=== PATIENT | female | born 1980 | race Caucasian/White ===

== ENCOUNTER 2016-08-04 13:58 | Emergency (ER) ==
[2016-08-04 14:22] VITALS: BP 133/76
--- NOTE | 2016-08-04 15:52 | PROVIDER DOCUMENTATION ---
[facility]-EENT General - General Chief Complaint: Sore Throat Stated Complaint: SORE THROAT Time Seen by Provider: 08/04/16 15:28 Source: patient Allergies/Adverse Reactions: Patient Allergies Allergy/AdvReac Type Severity Reaction Status Date / Time No Known Allergies Allergy Verified 08/04/16 14:22 Home Medications: Home Medication List Medication Instructions Recorded Confirmed Last Taken Type Citalopram [Celexa] 40 mg PO DAILY 01/05/15 08/04/16 01/05/15 History Clonazepam [Klonopin] 0.5 mg PO PRN PRN 01/05/15 08/04/16 Unknown History Amoxicillin 875 mg PO BID #14 tablet 08/04/16 Unknown Rx Guaifenesin/Codeine Phosphate 10 ml PO Q4HR PRN #120 liquid 08/04/16 Unknown Rx [Cheratussin AC Syrup] Tizanidine HCl [Zanaflex] 4 mg PO DAILY 08/04/16 08/04/16 Unknown History - History of Present Illness-EENT General Nature of Presenting Problem: Pt is 35 y/o F presents to the ED with sore throat. Pt states symptoms started last night. Pt states mild cough. Pt denies F. EENT Location: reports: throat Quality of Pain: reports: aching Severity: reports: mild Onset/Duration: reports: last night Timing: reports: still present Prearrival Treatment: Initiated no prearrival treatment Associated Symptoms: reports: cough, sore throat. denies: change in hearing, drooling, ear drainage, facial pain/swelling, fever, malaise, nasal congestion/ drainage, poor fluid intake, poor solids intake, sinus infection, tooth pain, voice change Locality of Occurance: Home Similar Symptoms Previously?: Yes Recently seen or treated by another doctor?: No - Throat/Dental Throat/Dental Problem Symptoms: reports: sore throat Review of Systems - Adult - REVIEW OF SYSTEMS - ADULT Constitutional: denies: chills, fever Eyes: denies: blurred vision, double vision Ears, Nose, Mouth & Throat: reports: throat pain. denies: ear pain, nose pain Cardiovascular: reports: irregular heart rate (tachy). denies: chest pain, heart murmur Respiratory: reports: cough. denies: shortness of breath, wheezing Gastrointestinal: denies: abdominal pain, diarrhea, nausea, vomiting Genitourinary: denies: dysuria, hematuria Musculoskeletal: denies: bone pain, joint pain, neck pain Integumentary: denies: hives, itching Neurological: denies: dizziness/vertigo, headache/migraines Psychiatric: reports: no symptoms reported Endocrine: reports: no symptoms reported Hematologic/Lymphatic: reports: no symptoms reported Allergic/Immunologic: reports: no symptoms reported All Other Systems: Reviewed and Negative Past History - Adult - PAST MEDICAL HISTORY-ADULT Review of Records: reports: Nursing Assessment Review, Medications Reviewed, Social history reviewed & non-contributory. Major Childhood Illnesses: reports: denies history Cardiovascular: reports: HTN Respiratory: reports: denies history Gastrointestinal: reports: denies history Obstetrical/Gynecological: reports: denies history Genitourinary: reports: chronic UTI's Musculoskeletal: reports: neck/back injury Neurological: reports: denies history Psychiatric: reports: depression Endocrine/Immune: reports: denies history Other Conditions: reports: denies history - PRIOR SURGERIES/PROCEDURES Surgical/Procedure History: reports: appendectomy - IMMUNIZATION STATUS Childhood Immunizations: See Nurse Assessment Flu Vaccine: See Nurse Assessment - FAMILY HISTORY Family History: reviewed, not pertinent - SOCIAL HISTORY Smoking: cigarettes, less than 1 pack/day Provider spent 3-5 mins advising pt. on dangers of tobacco.: Discussed manners to quit use, and f/u contacts for add'l counseling. Substance Use: alcohol Alcohol Use Frequency: rarely Number of drinks per typical drinking period:: 2 drinks Living Situation: family Physical Exam- EENT - Physical Exam EENT Initial Vital Signs Reviewed: Yes General Appearance: appears well, alert, no apparent distress Eye Exam: bilateral eye: normal inspection, PERRL, EOMI Ear Exam: bilateral ear: auricle normal, canal normal, TM normal Nasal Exam: normal inspection Throat Exam: normal mouth inspection, pharynx normal Neck: non-tender, full range of motion, supple, normal inspection Respiratory: chest non-tender, lungs clear, normal breath sounds, no pleuratic chest pain, no respiratory distress, no accessory muscle use Cardiovascular: normal peripheral pulses, no edema, no gallop, no JVD, no murmur , tachycardia Abdominal Exam: normal bowel sounds, non tender, soft, no organomegaly, no pulsatile mass Lymphatic: no adenopathy Back Exam: normal inspection, no CVA tenderness, no vertebral tenderness Extremity: normal range of motion, non-tender, normal gait, normal inspection, no pedal edema, no calf tenderness, normal capillary refill Integumentary: normal color, normal turgor, warm/dry Neurologic: stone cleaner II-XII nml as tested, grossly normal, no motor/sensory deficits Psych/Mental Status: normal mood/affect, normal thought content, normal thought process, oriented x 3 Progress - PLAN OF CARE/RESULTS Progress/Plan/Lab Results: Laboratory Tests 08/04/16 08/04/16 Unknown Unknown Influenza A (Rapid) NEGATIVE Influenza B (Rapid) NEGATIVE Group A Strep Rapid NEGATIVE Orders Category Date Time Status INFLUENZA SCREEN PL Stat Lab 08/04/16 Completed strep [DIRECT STREP PL] Stat Lab 08/04/16 Completed Vital Signs - 24 hr 08/04/16 14:20 Temperature 98.6 F Pulse Rate 100 H Respiratory 18 Rate Blood Pressure 133/76 O2 Sat by Pulse 100 Oximetry Departure - Departure Time of Disposition Order: 15:51 DIAGNOSIS: Pharyngitis Qualifiers: Pharyngitis/tonsillitis etiology: unspecified etiology Qualified Code(s): J02.9 - Acute pharyngitis, unspecified Disposition: HOME 01 Certified Medical Emergency: Emergent Condition: Stable Additional Instructions: ED Follow Up Instructions: You have been treated by a care provider in the Emergency Department. These instructions are being provided to you so you can have an understanding of how to care for yourself upon discharge. Upon discharge from the Emergency Department, you are responsible for making arrangements for follow-up care by a physician of your choice. Take all prescribed medications as directed. Return to the Emergency Department immediately for any new or worsening symptoms. You may call the Physician Referral phone number at [phone] to obtain a list of Physicians who are taking new patients. Attestation - Scribe Verification/Attestation Scribe:: Marcie Esposito Acting as Scribe for:: Gutierrez Catalan Scribcandi documention review:: This chart was documented by a scribe and accurately reflects the service the provider performed and the decisions made by the provider.
== END 2016-08-04 16:17 | disposition home or self-care (01) ==
LOC: P.ED 13:58
DX: J02.9 Acute pharyngitis, unspecified (principal); R05 Cough; R00.0 Tachycardia, unspecified; I10 Essential (primary) hypertension; Z87.440 Personal history of urinary (tract) infections; F32.9 Major depressive disorder, single episode, unspecified; F17.210 Nicotine dependence, cigarettes, uncomplicated; Z71.6 Tobacco abuse counseling; Z79.899 Other long term (current) drug therapy
CPT/HCPCS: 87081; 87430; 87804; 99283

== ENCOUNTER 2016-08-11 21:36 | Emergency (ER) ==
--- NOTE | 2016-08-12 00:40 | PROVIDER DOCUMENTATION ---
HPI-Rash/Wound/ReCheck - General Source: patient - History of Present Illness-Dermatology Location: reports: chest, face Onset/Duration: reports: last week Timing: reports: still present Context/Associated Symptoms: reports: sore throat <Triny Padilla - Last Filed: 08/12/16 00:25> <Mike West - Last Filed: 08/12/16 01:57> - General Chief Complaint: Return/Recheck Stated Complaint: THROAT,NECK PAIN/HEADACHE Time Seen by Provider: 08/11/16 23:52 Allergies/Adverse Reactions: Allergies Allergy/AdvReac Type Severity Reaction Status Date / Time No Known Allergies Allergy Verified 08/04/16 14:22 Home Medications: Home Medication List Medication Instructions Recorded Confirmed Last Taken Type Citalopram [Celexa] 40 mg PO DAILY 01/05/15 08/04/16 01/05/15 History Clonazepam [Klonopin] 0.5 mg PO PRN PRN 01/05/15 08/04/16 Unknown History Amoxicillin 875 mg PO BID #14 tablet 08/04/16 Unknown Rx Guaifenesin/Codeine Phosphate 10 ml PO Q4HR PRN #120 liquid 08/04/16 Unknown Rx [Cheratussin AC Syrup] Tizanidine HCl [Zanaflex] 4 mg PO DAILY 08/04/16 08/04/16 Unknown History Guaifenesin/Codeine [Robitussin-AC] 10 ml PO Q4H PRN PRN #8 oz 08/12/16 Unknown Rx Sulfamethoxazole/Tmp D.s. [Septra 1 each PO BID #20 tablet 08/12/16 Unknown Rx Ds] - History of Present Illness-Dermatology Nature of Presenting Problem: 35 Y/O F presents to ED with Recheck. Pt states that she was here last week with the same symptoms, and throat pain which has continued and hasn't gotten better,has worsened. States continued dry cough, with mucus sometimes. C/o of ear pain. C/o of neck hurting and headache. States been using amoxicillin. ( Triny Padilla) Review of Systems - Adult - REVIEW OF SYSTEMS - ADULT Constitutional: denies: chills, fever Eyes: reports: no symptoms reported Ears, Nose, Mouth & Throat: reports: throat pain. denies: ear pain, nose pain Cardiovascular: reports: no symptoms reported Respiratory: reports: cough. denies: shortness of breath Gastrointestinal: reports: no symptoms reported Genitourinary: reports: no symptoms reported Musculoskeletal: reports: no symptoms reported Integumentary: reports: no symptoms reported Neurological: reports: no symptoms reported Psychiatric: reports: no symptoms reported Endocrine: reports: no symptoms reported Hematologic/Lymphatic: reports: no symptoms reported Allergic/Immunologic: reports: no symptoms reported All Other Systems: Reviewed and Negative <Triny Padilla - Last Filed: 08/12/16 00:25> Past History - Adult - PAST MEDICAL HISTORY-ADULT Review of Records: reports: Old Records Reviewed, Nursing Assessment Review, Medications Reviewed, Social history reviewed & non-contributory. Major Childhood Illnesses: reports: denies history Cardiovascular: reports: HTN Respiratory: reports: denies history Gastrointestinal: reports: denies history Obstetrical/Gynecological: reports: denies history Genitourinary: reports: chronic UTI's Musculoskeletal: reports: neck/back injury Neurological: reports: denies history Psychiatric: reports: depression Endocrine/Immune: reports: denies history Other Conditions: reports: denies history - PRIOR SURGERIES/PROCEDURES Surgical/Procedure History: reports: appendectomy - IMMUNIZATION STATUS Childhood Immunizations: See Nurse Assessment Flu Vaccine: See Nurse Assessment - FAMILY HISTORY Family History: reviewed, not pertinent - SOCIAL HISTORY Smoking: cigarettes, less than 1 pack/day Substance Use: none/never Alcohol Use Frequency: never <Triny Padilla Last Filed: 08/12/16 00:25> Physical Exam-General - CONSTITUTIONAL General Appearance: alert, no apparent distress. negative: appears well - EYES Eyes: PERRL/EOMI, pink conjunctivae, fundi clear, no AV nicking - HEAD, EARS, NOSE, MOUTH & THROAT HENMT: normocephalic/atraumatic, moist mucous membranes, TMs normal, other ( venereal warts) - NECK Neck: non-tender, full range of motion, supple, normal inspection - RESPIRATORY Respiratory: chest non-tender, lungs clear, normal breath sounds - CARDIOVASCULAR Cardiovascular: normal peripheral pulses, regular rate, rhythm - CHEST (BREASTS) Chest/Breast: deferred - GASTROINTESTINAL (ABDOMEN) Abdominal Exam: normal bowel sounds, non tender, soft - MUSCULOSKELETAL Back Exam: normal inspection, no CVA tenderness, no vertebral tenderness - SKIN Integumentary: normal color, normal turgor, warm/dry - NEUROLOGIC Neurologic: singe winder II-XII nml as tested - PSYCHIATRIC Psych/Mental Status: normal mood/affect, normal thought content, normal thought process, oriented x 3 <Triny Padilla - Last Filed: 08/12/16 00:25> Progress <Triny Padilla - Last Filed: 08/12/16 00:25> - XRAY 1 XRAY Study: Chest Impression: Normal 2 XRAY Study: other (sinus neg) <Mike West - Last Filed: 08/12/16 01:57> - PLAN OF CARE/RESULTS Progress/Plan/Lab Results: Laboratory Tests 08/11/16 00:40 WBC 10.86 H RBC 4.75 Hgb 13.5 Hct 40.7 MCV 85.7 MCH 28.4 MCHC 33.2 RDW Std Deviation 12.9 Plt Count 262 MPV 9.7 Immature Gran % (Auto) 0.3 Neut % (Auto) 57.3 Lymph % (Auto) 29.5 Person % (Auto) 10.2 H Eos % (Auto) 2.5 Baso % (Auto) 0.2 Immature Gran # (Auto) 0.03 Neut # (Auto) 6.23 Lymph # (Auto) 3.20 Person # (Auto) 1.11 H Eos # (Auto) 0.27 Baso # (Auto) 0.02 Orders Category Date Time Status CHEST-2 VIEWS [RAD] Stat Exams 08/12/16 00:00 Taken SINUSES STOCK VIEW ONLY [RAD] Stat Exams 08/12/16 00:00 Taken CBC WITH DIFF [HEME] Stat Lab 08/11/16 00:40 Completed Vital Signs - 24 hr 08/11/16 21:45 Temperature 98 F Pulse Rate 106 H Respiratory 18 Rate Blood Pressure 166/79 O2 Sat by Pulse 100 Oximetry (Mike West) Departure <Triny Padilla - Last Filed: 08/12/16 00:25> - Departure Time of Disposition Order: 01:55 Certified Medical Emergency: Emergent <Mike West - Last Filed: 08/12/16 01:57> - Departure DIAGNOSIS: URI (upper respiratory infection) Qualifiers: URI type: unspecified viral URI Qualified Code(s): J06.9 - Acute upper respiratory infection, unspecified; B97.89 - Other viral agents as the cause of diseases classified elsewhere Disposition: HOME 01 Condition: Stable Additional Instructions: ED Follow Up Instructions: You have been treated by a care provider in the Emergency Department. These instructions are being provided to you so you can have an understanding of how to care for yourself upon discharge. Upon discharge from the Emergency Department, you are responsible for making arrangements for follow-up care by a physician of your choice. Take all prescribed medications as directed. Return to the Emergency Department immediately for any new or worsening symptoms. You may call the Physician Referral phone number at [phone] to obtain a list of Physicians who are taking new patients. Prescriptions: Guaifenesin/Codeine [Robitussin-AC] 10 ml PO Q4H PRN PRN #8 oz PRN Reason: Cough Sulfamethoxazole/Tmp D.s. [Septra Ds] 1 each PO BID #20 tablet Referrals: Angela Rodriguez CRNP [Primary Care Provider] - Attestation - Scribe Verification/Attestation Scribe:: Triny Padilla Acting as Scribe for:: Mike West Scribe documention review:: This chart was documented by a scribe and accurately reflects the service the provider performed and the decisions made by the provider. <Triny Padilla - Last Filed: 08/12/16 00:25> Physician Attestation
[2016-08-12 00:52] LABS: MANUAL DIFF NEEDED? NO
[2016-08-12 01:45] LABS: BASO% 0.2 % (0.0-0.8); EOS# 0.27 X1000 (0.0-0.7); EOS% 2.5 % (0.0-10.0); HEMATOCRIT 40.7 % (37.0-47.0); HEMOGLOBIN 13.5 g/dL (12.0-16.0); IMM GRAN# 0.03 X1000 (0.0-0.04); IMM GRAN% 0.3 % (0.0-0.5); LYMPH% 29.5 % (20.5-51.1); MCH 28.4 PG (27-31); MCHC 33.2 g/dL (33-37); MCV 85.7 FL (81-99); MONO# 1.11 X1000 (0.11-0.59); MONO% 10.2 % (1.7-9.3); MPV 9.7 FL (7.4-10.4); NEUT% 57.3 % (42.2-75.2); PLT 262 X1000 (130-400); RBC 4.75 XMIL (4.2-5.4)
[2016-08-12 02:01] VITALS: BP 135/89
--- NOTE | 2016-08-12 08:13 | Diag Imaging Result Document ---
PROCEDURE NAME: SINUSES STOCK VIEW ONLY - 08/12/2016 STOCK VIEW OF THE SINUSES: FINDINGS: No sinus opacification. There is mild increased density over the right maxillary sinus. No mucosal thickening. No air fluid levels. IMPRESSION: I believe there is right maxillary sinusitis.
--- NOTE | 2016-08-12 08:15 | Diag Imaging Result Document ---
PROCEDURE NAME: CHEST-2 VIEWS - 08/12/2016 FRONTAL AND LATERAL CHEST, TWO VIEWS: COMPARISON: Compared to 03/05/2012. FINDINGS: The lungs are well expanded. The heart is not enlarged. The vessels are not distended. No infiltrates. No pleural effusions. IMPRESSION: No pneumonia.
== END 2016-08-12 02:03 | disposition home or self-care (01) ==
LOC: P.ED 21:36
DX: J06.9 Acute upper respiratory infection, unspecified (principal); J02.9 Acute pharyngitis, unspecified; M54.2 Cervicalgia; R51 Headache; R05 Cough; R09.3 Abnormal sputum; H92.09 Otalgia, unspecified ear; I10 Essential (primary) hypertension; F32.9 Major depressive disorder, single episode, unspecified; F17.210 Nicotine dependence, cigarettes, uncomplicated; Z79.899 Other long term (current) drug therapy; Z87.440 Personal history of urinary (tract) infections
CPT/HCPCS: 70210; 71020; 85025